=== PATIENT | female | born 1960 | race Caucasian/White ===

== ENCOUNTER 2017-04-06 09:43 | Emergency (ER) | payer MEDICAID ==
[2017-04-06 09:47] VITALS: O2SAT 97
--- NOTE | 2017-04-06 09:51 | EDPHY ---
HPI/HX/ROS/PE/MDM Narrative: CHIEF COMPLAINT: Malaise, multiple complaints HPI: This patient is a 57-year-old female who presents to the Emergency Department complaining of generalized malaise with multiple complaints over the past week. She reports feeling fatigued with body aches and intermittent hot sweats that were "almost flu-like" over that time. She also complains of worsening lightheadedness and mild chest discomfort, worse over the past two days. She reports a mild cough but no additional complaints of sore throat, congestion, or dyspnea. She has not taken her temperature at home. She denies any recent excessive exertion or travel. Medical history includes hyperlipidemia. REVIEW OF SYSTEMS: Aside from elements discussed in the HPI, a comprehensive 10-point review of systems was reviewed and is negative. PMH: Hyperlipidemia SOCIAL HISTORY: Moved to [place] three years ago. Works as a assistant front desk manager. PHYSICAL EXAM: General:Patient is alert, in no acute distress. ENT:Eyes are normal to inspection. ENT inspection normal. Neck: Normal inspection. Full range of motion. Respiratory:No respiratory distress. Breath sounds normal bilaterally. Cardiovascular: Regular rate and rhythm. Strong peripheral pulses. Normal cap refill. Abdomen:The abdomen is nontender to palpation. There are no peritoneal signs. There are normal bowel sounds. Back: Normal to inspection. No tenderness to palpation. Skin: Normal color. No rash. Warm and dry. Extremities: Normal appearance. Full range of motion. Neuro: Oriented x3. Normal motor function. Normal sensory function. ED Course: 57-year-old female presents with multiple vague complaints of fatigue, malaise, hot sweats, lightheadedness, and mild chest discomfort over the past week. She has not taking her temperature at home but is afebrile at time of presentation at 36.4C. She is tachycardic at 106 but has an otherwise normal exam. Plan for EKG, chest x-ray, and labs including troponin. IV established. 1L IV NS administered. EKG was ordered and interpreted by myself. Please see [facility] system for official reading. Labs reviewed and are unremarkable. Troponin is negative. 1041: Repeat vitals obtained. HR is now normal at 79. I discussed results with the patient. The patient is asymptomatic at this time. She is no longer tachycardic following administration of fluids. While I am unable to rule out her concern of cardiac etiology for her complaints today, my suspicion remains low given duration of complaints and normal findings today. I discussed with the patient my recommendation that she follow-up with her PCP for further evaluation. She is agreeable to this. She is given strict return precautions and will be discharged home in good condition. MDM: This is a healthy female who presents with approximately one week of diffuse body aches and malaise, that also includes some chest tightness. Her chest pain descriptions is very atypical. We performed an extensive workup that is negative for signs of ACS, PNA, TAD, pericarditis. The patient has no risk factors for PE and she does not describe pleuritic chest pain. The etiology of her symptoms is unclear but may represent a viral syndrome. She is afebrile and has normal vital signs. She is well-appearing on exam. Her ECG reveals an abnormal p-wave but is otherwise unremarkable. We have recommended cardiology follow-up. - Data Points Imaging Results: Imaging Impressions Chest X-Ray 04/06/17 09:51 Impression: Clear lungs. No acute process. Laboratory Results: Laboratory Results 04/06/17 10:00 04/06/17 10:00 04/06/17 04/06/17 10:00 10:00 WBC 5.87 10^3/uL 10^3/uL (3.80-9.50) RBC 5.39 10^6/uL H 10^6/uL (4.18-5.33) Hgb 16.8 g/dL H g/dL (12.6-16.3) Hct 49.0 % H % (38.0-47.0) MCV 90.9 fL fL (81.5-99.8) MCH 31.2 pg pg (27.9-34.1) MCHC 34.3 g/dL g/dL (32.4-36.7) RDW 12.8 % % (11.5-15.2) Plt Count 243 10^3/uL 10^3/uL (150-400) MPV 9.6 fL fL (8.7-11.7) Neut % (Auto) 67.5 % % (39.3-74.2) Lymph % (Auto) 20.3 % % (15.0-45.0) Tyler % (Auto) 7.8 % % (4.5-13.0) Eos % (Auto) 3.4 % % (0.6-7.6) Baso % (Auto) 0.5 % % (0.3-1.7) Nucleat RBC Rel Count 0.0 % % (0.0-0.2) Absolute Neuts (auto) 3.96 10^3/uL 10^3/uL (1.70-6.50) Absolute Lymphs (auto) 1.19 10^3/uL 10^3/uL (1.00-3.00) Absolute Monos (auto) 0.46 10^3/uL 10^3/uL (0.30-0.80) Absolute Eos (auto) 0.20 10^3/uL 10^3/uL (0.03-0.40) Absolute Basos (auto) 0.03 10^3/uL 10^3/uL (0.02-0.10) Absolute Nucleated RBC 0.00 10^3/uL 10^3/uL (0-0.01) Immature Gran % 0.5 % % (0.0-1.1) Immature Gran # 0.03 10^3/uL 10^3/uL (0.00-0.10) Sodium 143 mEq/L mEq/L (134-144) Potassium 4.2 mEq/L mEq/L (3.5-5.2) Chloride 101 mEq/L mEq/L (97-110) Carbon Dioxide 24 mEq/l mEq/l (22-31) Anion Gap 18 mEq/L H mEq/L (8-16) BUN 14 mg/dL mg/dL (7-23) Creatinine 0.9 mg/dL mg/dL (0.6-1.0) Estimated GFR > 60 Glucose 95 mg/dL mg/dL (70-100) Calcium 9.6 mg/dL mg/dL (8.5-10.4) Troponin I < 0.012 ng/mL ng/mL (0-0.034) Medications Given: Discontinued Medications Sodium Chloride (Ns) 1,000 mls @ 0 mls/hr IV ONCE ONE; Wide Open PRN Reason: Protocol Stop: 04/06/17 10:19 Last Admin: 04/06/17 10:23 Dose: 1,000 mls General Time Seen by Provider: 04/06/17 09:50 Initial Vital Signs: Initial Vital Signs Temperature (C) 36.4 C 04/06/17 09:43 Heart Rate 106 H 04/06/17 09:43 Respiratory Rate 16 04/06/17 09:43 Blood Pressure 139/98 H 04/06/17 09:43 O2 Sat (%) 97 04/06/17 09:43 O2 Delivery Mode Room Air Allergies/Adverse Reactions: No Known Allergies Allergy (Unverified 04/06/17 09:47) Home Medications: Medication Instructions Recorded NK [No Known Home Meds] 04/06/17 Departure - Departure Disposition: Home, Routine, Self-Care Clinical Impression: Dehydration, Myalgia Chest pain Qualifiers: Chest pain type: other chest pain Qualified Code(s): R07.89 - Other chest pain Condition: Good Instructions: Chest Pain (ED) Additional Instructions: 1. Establish care with a primary care provider. We have referred you to our on- call provider. We have also included a referral to our on-call stable cleaner with whom you can follow-up for evaluation of chest pain. 2. Drink plenty of fluids. 3. Return to the Emergency Department with recurrence of chest pain, shortness of breath, high fever, or other serious concerns. Referrals: Jeanette Cameron MD [Medical Doctor] - As per Instructions Dewey Hawkins MD [Medical Doctor] - As per Instructions Report Scribed for: Travis Banda Report Scribed by: Jessica Garrison Date of Report: 04/06/17 Time of Report: 10:10 Physician Review and Approval Statement: Portions of this note were transcribed by an ED scribe. I personally performed the history, physical exam, and medical decision making; and confirm the accuracy of the information in the transcribed note.
--- NOTE | 2017-04-06 09:57 | CPEKG ---
Heart Rate: 88 RR Interval: 682 P-R Interval: 144 QRSD Interval: 86 QT Interval: 364 QTC Interval: 441 P Rowlett: 80 QRS Rowlett: 96 T Wave Rowlett: 2 EKG Severity - ABNORMAL ECG - EKG Impression: SINUS RHYTHM EKG Impression: BIATRIAL ABNORMALITIES EKG Impression: BORDERLINE RIGHT AXIS DEVIATION EKG Impression: CONSIDER ANTEROSEPTAL INFARCT Electronically Signed By: Dion Sanchez 07-Apr-2017 08:11:43
[2017-04-06 10:09] LABS: % IMMATURE GRANULYOCYTES 0.5 % (0.0-1.1); ABSOLUTE IMMATURE GRANULOCYTES 0.03 10^3/uL (0.00-0.10); ADD DIFF? NO; ADD MORPH? NO; ADD SCAN? YES; FRAGMENT RBC FLAG 0 (0-99); HEMOGLOBIN 16.8 g/dL (12.6-16.3); LEFT SHIFT FLG 10 (0-99); LIPEMIA HEMOLYSIS FLAG 90 (0-99); MEAN CELL HEMOGLOBIN 31.2 pg (27.9-34.1); MEAN CELL HEMOGLOBIN CONCENTR. 34.3 g/dL (32.4-36.7); MEAN CELL VOLUME 90.9 fL (81.5-99.8); MEAN PLATELET VOLUME 9.6 fL (8.7-11.7); PLATELET CLUMPS FLAG 0 (0-99); PLATELET COUNT 243 10^3/uL (150-400); RED BLOOD CELL COUNT 5.39 10^6/uL (4.18-5.33); RED CELL DISTRIBUTION WIDTH 12.8 % (11.5-15.2)
[2017-04-06 10:12] LABS: ATYPICAL LYMPHOCYTE FLAG 290 (0-99)
[2017-04-06] MEDS ORDERED: NS 1,000 ML IV ONE (10:18)
[2017-04-06 10:22] LABS: ANION GAP 18 mEq/L (8-16); CALCIUM 9.6 mg/dL (8.5-10.4); CARBON DIOXIDE 24 mEq/l (22-31); CHLORIDE 101 mEq/L (97-110); CREATININE 0.9 mg/dL (0.6-1.0); GLOMERULAR FILTRATION RATE > 60; GLUCOSE 95 mg/dL (70-100); POTASSIUM 4.2 mEq/L (3.5-5.2); SODIUM 143 mEq/L (134-144)
[2017-04-06 10:33] LABS: TROPONIN I < 0.012 ng/mL (0-0.034)
[2017-04-06 10:34] LABS: SCAN NEGATIVE
[2017-04-06 10:42] VITALS: BP 140/29; PULSE 79; RESP 18; TEMP 99
== END 2017-04-06 11:10 | disposition home or self-care (01) ==
DX: R07.89 Other chest pain (principal); E86.0 Dehydration; M79.1 Myalgia

== ENCOUNTER → 2017-08-12 | Outpatient (CLI) | payer MEDICAID | LOC: FIMAGING 11:20 | PROVIDERS: ATTEND Nurse Practitioner Family | DX: Z12.31 Encounter for screening mammogram for malignant neoplasm of breast (principal) | CPT/HCPCS: G0202 ==